=== PATIENT | male | born 1960 | race Caucasian/White ===

== ENCOUNTER 2018-03-22 11:02 | Outpatient (CLI) | payer OTHER ==
[~2018-03-22] VITALS: Ht 182.9 cm; Wt 97.3 kg
--- NOTE | ~2018-03-22 | HEMODYNAMI ---
PATIENT:BETH CORTEZ MEDICAL RECORD: [id number] : 56 LOCATION:[facility] ADMISSION DATE: 03/22/18 Generatedon:03/22/201815:07 Patient name: BETH CORTEZ Patient #: [id number] SSN: : 1960 Date of study: 03/22/2018 Page: Of Hemodynamic Procedure Report Patient Data Patient Demographics Procedure consent was obtained First Name: BETH Gender: Male Last Name: DIEGO : 1960 Middle Initial: L Age: 57 year(s) Patient #: [id number] Race: Unknown Additional ID: [id number] Contact details Address: [address] [place] [address] [address]IVE State: [place] City: [place] Zip code: [address] Past Medical History Allergies Allergen Reaction Date Comments Reported Other allergy 03/22/2018 PCN Admission Admission Data Admission Date: 03/22/2018 Admission Time: 11:02 Height (in.): 72 BSA: 2.19 (m2) Height (cm.): 182.88 BMI: 29.02 (kg/m2) Weight (lbs.): 214 Weight (kg.): 97.07 Procedure Procedure Types Cath Procedure Diagnostic Procedure C LH w/Coronaries w/Grafts Sedation Charges Moderate Sedation up to 45 minutes PCI Procedure Coronary Stent Coronary Stent Initial Procedure Description Procedure Date Procedure Date: 03/22/2018 Procedure Start Time: 14:12 Procedure End Time: 15:04 Procedure Staff Name Function Hugh Pinto MD Performing Physician Michelle Gandara RN Nurse Radha Cnaela RT Scrub Evan Richter RT Monitor David Medina RT Monitor Procedure Data Cath Procedure Fluoroscopy Diagnostic fluoroscopy Total fluoroscopy Time: time: 22.7 min 22.7 min Diagnostic fluoroscopy Total fluoroscopy dose: dose: 2185 mGy 2185 mGy Contrast Material Contrast Material Type Amount (ml) Isovue 370 186 Entry Location Entry Primary Successful Side Size Upsize Upsize Entry Closure Succes sful Closure Location (Fr) 1 (Fr) 2 (Fr) Remarks Device Remarks Femoral Right 5 Fr 6 Fr Exoseal artery Short Estimated blood loss: 10 ml Diagnostic catheters Device Type Used For End Catheter Placement MULTIPACK JL 4.0 5Fr Procedure catheter MULTIPACK 3DRC 5Fr Procedure catheter MULTIPACK Pigtail 5 Fr Procedure catheter Procedure Complications No complications Procedure Medications Medication Administration Route Dosage Oxygen NC 2 l/min Lidocaine 2% added to field 20 Heparin Flush Bag added to field 2 bags (1000units/500ml NS) 0.9% NaCl I.V. 100 ml/hr Versed I.V. 2 mg Fentanyl I.V. 50 mcg Versed I.V. 1 mg Fentanyl I.V. 50 mcg Versed I.V. 1 mg Heparin Bolus I.V. 4000 units Integrilin (Bolus I.V. 9 ml 2mg/ml) Brilinta P.O. 180 mg Hemodynamics Rest BSA: 2.19 (m2) O2 Consumption: Estimated: 252.23 (ml/min) O2 Consumption indexed : Estimated:115.17 (ml/min/m) Heart Rate: 63 (bpm) Pressure Samples Time Site Value (mmHg) Purpose Heart Use Rate(bpm) 14:14 AO 129/82(102) Snapshot 66 14:21 LV 124/22,26 Snapshot 65 14:22 AO 126/78(99) Pullback 67 14:22 LV 112/20,26 Pullback 67 14:22 AO 121/77(97) Snapshot 69 Gradients Valve Time Site 1 Site 2 Mean SEP/DFP Peak To Heart Use (mmHg) (sec/min) Peak Rate (mmHg) (bpm) Aortic 14:22 LV AO 0 67 112/20,26 126/78(99) Calculations Valve P-P Mean Valve Index Valve Source Name Gradient Area Flow (cm2) Aortic 0 0 Snapshots Pre Cath Intra NCS Post Cath Vital Signs Time Heart Resp SPO2 etCO2 NIBP (mmHg) Rhythm Pain Sedation Rate (ipm) (%) (mmHg) Status Level (bpm) 13:42:03 60 17 100 31.4 149/88(134) NSR 0 (11) 10(A) , No pain 13:46:19 66 15 97 29.9 161/90(138) NSR 0 (11) 10(A) , No pain 13:50:33 61 12 98 26.2 140/84(120) NSR 0 (11) 10(A) , No pain 13:55:22 63 16 97 39.6 140/82(101) NSR 0 (11) 10(A) , No pain 13:59:38 67 12 95 27.7 140/83(118) NSR 0 (11) 10(A) , No pain 14:03:42 69 13 94 32.9 136/92(113) NSR 0 (11) 10(A) , No pain 14:07:52 61 15 94 28.4 131/87(97) NSR 0 (11) 10(A) , No pain 14:12:08 64 12 93 37.4 125/80(106) NSR 0 (11) 9(A) , No pain 14:16:22 66 13 93 40.4 122/80(110) NSR 0 (11) 9(A) , No pain 14:21:47 68 12 95 0 127/68(103) NSR 0 (11) 9(A) , No pain 14:26:01 67 15 92 0 114/72(96) NSR 0 (11) 9(A) , No pain 14:30:15 70 14 94 0 113/71(87) NSR 0 (11) 10(A) , No pain 14:34:27 68 16 93 0 119/68(87) NSR 0 (11) 10(A) , No pain 14:38:41 67 13 93 0 128/74(109) NSR 0 (11) 10(A) , No pain 14:43:40 67 12 93 18.7 147/87(116) NSR 0 (11) 10(A) , No pain 14:47:56 69 12 94 33.7 155/92(133) NSR 0 (11) 10(A) , No pain 14:52:18 67 13 93 34.4 143/78(111) NSR 0 (11) 10(A) , No pain 14:56:36 71 14 92 38.9 131/72(106) NSR 0 (11) 10(A) , No pain 15:00:50 68 13 93 35.2 125/78(99) NSR 0 (11) 10(A) , No pain 15:05:04 64 14 94 36.7 128/79(102) NSR 0 (11) 10(A) , No pain Medications Time Medication Route Dose Verified Delivered Reason Notes Effectiveness by by 13:42:53 Oxygen NC 2 Hugh Martinez used for l/min St Baldo Gandara RN procedure MD 13:43:00 Lidocaine 2% added 20ml Hugh Reese for local to vial [facility] anesthetic field MD SINGH 13:43:07 Heparin Flush added 2 Hugh Reese used for Bag to bags [facility] John procedure (1000units/500ml field MD SINGH NS) 13:43:16 0.9% NaCl I.V. 100 Hugh Martinez Per physician ml/hr St Baldo Gandara RN, MD 14:04:46 Versed I.V. 2 mg Hugh Martinez for sedation St Baldo Gandara RN, MD 14:04:52 Fentanyl I.V. 50 Hugh Martinez for sedation mcg St Baldo Gandara RN, MD 14:09:16 Versed I.V. 1 mg Hugh Martinez for sedation St Baldo Gandara RN, MD 14:09:20 Fentanyl I.V. 50 Hugh Martinez for sedation mcg St Baldo Gandara RN, MD 14:20:37 Versed I.V. 1 mg Hugh Martinez for sedation St Baldo Gandara RN, MD 14:26:36 Heparin Bolus I.V. 4000 Hugh Martinez for verifi ed units St Baldo Gandara RN anticoagulation with dr MD reynolds 14:30:02 Integrilin I.V. 9 ml Hugh Maritnez for Wasted 1 (Bolus 2mg/ml) St Baldo Gandara RN antiplatelet ml of MD therapy vial 15:03:09 Brilinta P.O. [address] Hugh [address] for mg [facility] Baldo Gandara RN antiplatelet MD therapy Procedure Log Time Note 13:38:39 Patient Height : 72 inches 13:39:13 Patient Weight : 214 lbs 13:39:37 Diagnostic Cath status Elective 13:39:47 Michelle Gandara RN sent for patient. Start room use. 13:39:49 Time tracking: Regular hours (M-F 7:00 - 5:00) 13:39:55 Plan of Care:Hemodynamics will remain stable., Cardiac rhythm will remain stable., Comfort level will be maintained., Respiratory function will remain adequate., Patient/ family verbilizes understanding of procedure., Procedure tolerated without complication., Recovers from procedure without complications.. 13:40:36 Patient received from Pre/Post Procedure Room to CCL 2 Alert and oriented. Tansferred to table in Supine position. 13:40:37 Warm blankets applied, and jil hugger turned on for patient comfort. 13:40:38 Correct patient and procedure confirmed by team. 13:40:40 Signed procedure consent form obtained from patient. 13:40:46 ECG and BP/O2 sat monitors applied to patient. 13:40:50 Vital chart was started 13:41:04 Baseline sample Acquired. 13:41:53 Rhythm: sinus rhythm 13:41:56 Full Disclosure recording started 13:42:11 H&P Date Dictated: 03/08/2018 Within 30 days and on chart., H&P Addendum completed by physician on day of procedure. (MUST COMPLETE FOR ALL OUTPATIENTS). 13:42:13 Family in waiting room. 13:42:15 Patient NPO since Midnight. 13:42:26 Patient allergic to Other allergyPCN 13:42:35 Was the patient premedicated? Yes 13:42:36 Is the patient allergic to Iodine/contrast media? No. 13:42:39 Patient diabetic? No. 13:42:44 Snore? Yes 13:42:46 Sleep apnea? No 13:42:53 Oxygen 2 l/min NC was administered by Michelle Gandara RN; used for procedure; 13:42:55 Patient pain scale 0/10 ?. 13:43:00 Lidocaine 2% 20ml vial added to field was administered by Hugh Pinto MD; for local anesthetic; 13:43:05 IV patent on arrival in left hand with 0.9% NaCl at KVO. 13:43:07 Heparin Flush Bag (1000units/500ml NS) 2 bags added to field was administered by Hugh Pinto MD; used for procedure; 13:43:16 0.9% NaCl 100 ml/hr I.V. was administered by Michelle Gandara RN; Per physician; 13:43:16 Lab results completed and on chart. 13:43:21 Right groin area was prepped with chlora-prep and draped in sterile fashion 13:43:22 Alarms reviewed by R. N. 13:43:22 Sharps counted by scrub and verified by R.N. 13:43:23 Physician paged 13:50:40 Deviated septum? No 13:50:41 Opens mouth fully? Yes 13:50:42 Sticks out tongue? Yes 13:50:51 Airway obstruction? No ? 13:51:03 Dentures? No ? 13:51:32 Pre procedure: right dorsailis pedis pulse 2+ Normal; easily identifiable; not easily obliterated 14:02:22 Physician arrived 14:02:22 --------ALL STOP TIME OUT------ 14:02:23 Final Timeout: patient, procedure, and site verified with staff and physician. All members of the team are in agreement. 14:02:49 Right groin site verified by team. 14:02:57 Physical assessment completed. ASA score P 2 - A patient with mild systemic disease as per Hugh Pinto MD. 14:03:02 Sedation plan: IV Moderate Sedation Medication:Versed, Fentanyl 14:04:46 Versed 2 mg I.V. was administered by Michelle Gandara RN; for sedation; 14:04:52 Fentanyl 50 mcg I.V. was administered by Michelle Gandara RN; for sedation; 14:05:31 Use device set Femoral Dx 14:05:33 ACIST Syringe (31801) opened to sterile field. 14:05:34 Bag Decanter (2002S) opened to sterile field. 14:05:34 Medline Cath Pack ([id number]) opened to sterile field. 14:05:35 DIAGNOSTIC WIRE .035 260cm J wire ([id number]) opened to sterile field. 14:05:37 ACIST Hand Control (65008) opened to sterile field. 14:05:38 ACIST Manifold (78241) opened to sterile field. 14:05:39 DIAGNOSTIC Multipack 5Fr catheter set (LC0628) opened to sterile field. 14:05:40 Tegaderm 4 x 4 (1626W) opened to sterile field. 14:05:46 SHEATH Prelude 5Fr 0.035 (THY-6S-69-035) opened to sterile field. 14:07:14 Zero performed for pressure channel P1 14:09:16 Versed 1 mg I.V. was administered by Michelle Gandara RN; for sedation; 14:09:20 Fentanyl 50 mcg I.V. was administered by Michelle Gandara RN; for sedation; 14:12:06 Procedure started. 14:12:12 Local anesthetic to right femoral artery with Lidocaine 2% by Hugh Pinto MD.INITIAL ACCESS ONLY 14:13:15 A 5 Fr sheath was inserted into the Right Femoral artery 14:13:58 A MULTIPACK JL 4.0 5Fr catheter was advanced over the wire and used for Procedure. 14:14:44 LCA angiography performed. 14:15:29 Catheter removed. 14:15:34 A MULTIPACK 3DRC 5Fr catheter was advanced over the wire and used for Procedure. 14:15:55 RCA angiography performed. 14:19:14 ROCA to LAD angiography performed. 14:20:11 ROCA to Diag angiography performed. 14:20:14 ROCA to OM angiography performed. 14:20:23 Catheter removed. 14:20:37 Versed 1 mg I.V. was administered by Michelle Gandara RN; for sedation; 14:20:45 skip graft to all three 14:21:00 A MULTIPACK Pigtail 5 Fr catheter was advanced over the wire and used for Procedure. 14:21:58 LV hemodynamics recorded. 14:22:01 LV gram done using ALVARADO 14:22:11 EF : 55 % 14:22:40 Aortic Root visualized 14:24:35 Catheter removed. 14:24:36 Proceeding to intervention. 14:25:13 GUIDE 6FR HS I catheter (LA6HSI) opened to sterile field. 14:25:14 INFLATOR Merit BasixCompak (TM3892) opened to sterile field. 14:25:22 WHISPER 300cm guide wire ([id number]) opened to sterile field. 14:25:41 SHEATH 6Fr Prelude ([id number]) opened to sterile field. 14:26:36 Heparin Bolus 4000 units I.V. was administered by Michelle Gandara RN; for anticoagulation; verified with dr reynolds 14:27:02 Sheath upsized to a 6 Fr Short. 14:27:27 6 Fr HS 1 guide catheter was inserted over the wire 14:28:51 WHISPER wire advanced. 14:30:02 Integrilin (Bolus 2mg/ml) 9 ml I.V. was administered by Michelle Gandara RN; for antiplatelet therapy; Wasted 1 ml of vial 14:30:28 Wire advanced across lesion. 14:31:47 The INTEGRITY RX 3.0 x 22 stent ([id number]) was advanced then removed because of failure to cross lesion 14:34:43 Inflate balloon Inflation number: 1 A EUPHORA 3.0 x 15 Balloon ([id number]) was prepped and advanced across the Mid RCA, then inflated to 12 ROLO for 0:15 (min:sec). 14:37:15 The EUPHORA 3.0 x 15 Balloon ([id number]) was advanced and then removed because of failure to cross lesion 14:37:42 NOT ABLE TO READVANCE BALLOON WITH FLARE 14:39:37 Wire removed. 14:39:44 CHOICE PT Extra Support J 300cm guide wire ([id number]) opened to sterile field. 14:40:09 CHOICE PT wire advanced. 14:41:03 Inflate balloon Inflation number: 2 A EMERGE OTW 2.0 x 15 balloon ([id number]) was prepped and advanced across the Mid RCA, then inflated to 14 ROLO for 0:42 (min:sec). 14:41:20 Inflation number: 3 The EMERGE OTW 2.0 x 15 balloon ([id number]) was reinflated across the Mid RCA, to 14 ROLO for 0:20 (min:sec). 14:42:11 Inflation number: 4 The EMERGE OTW 2.0 x 15 balloon ([id number]) was reinflated across the Mid RCA, to 14 ROLO for 0:10 (min:sec). 14:45:38 Place stent Inflation Number: 5 A INTEGRITY RX 3.0 x 22 stent ([id number]) was prepped and advanced across the Mid RCA. The stent was deployed at 14 ROLO for 0:10 (min:sec). 14:46:02 Evan Richter RT(R)(CV) was relieved by David Medina RT(R) as monitoring person 14:47:21 Stent catheter was removed intact over wire. 14:50:23 Place stent Inflation Number: 1 A INTEGRITY OTW 3.0 X 30 stent ([id number]) was prepped and advanced across the Prox RCA. The stent was deployed at 14 ROLO for 0:30 (min:sec). 14:51:02 Stent catheter was removed intact over wire. 14:56:55 Place stent Inflation Number: 2 A INTEGRITY OTW 3.0 X 12 stent ([id number]) was prepped and advanced across the Prox RCA. The stent was deployed at 12 ROLO for 0:30 (min:sec). 14:58:41 Stent catheter was removed intact over wire. 14:58:42 Wire removed. 14:58:43 Guide catheter removed. 14:58:49 EXOSEAL 6Fr (EX600) opened to sterile field. 15:00:37 Sheath removed intact; hemostasis achieved with Exoseal to the Right Femoral artery. 15:00:39 Procedure ended.(Physican Out) 15:01:57 Fluoroscopy time 22.70 minutes. 15:02:03 Fluoroscopy dose: 2185 mGy 15:02:03 Flurop Dose total: 2185 15:02:06 Contrast amount:Isovue 370 186ml. 15:02:07 Sharps counted by scrub and verified by R.N. 15:02:09 Insertion/operative site no bleeding no hematoma. 15:02:12 Post-op/insertion site Right Femoral artery dressed using a 4 x 4 and Tegaderm. 15:02:16 Post right femoral artery:stable, soft, clean and dry 15:02:17 Post Procedure Pulses reassessed and unchanged 15:02:19 Post-procedure physical assessment completed. ASA score P 2 - A patient with mild systemic disease as per Hugh Pinto MD. 15:02:22 Post procedure rhythm: unchanged. 15:02:24 Estimated blood loss: 10 ml 15:02:26 Post procedure instruction explained to patient.Patient verbalizes understanding. 15:02:26 Patient needs reinforcement of post procedure teaching. 15:02:57 Procedure type changed to Cath procedure, Diagnostic procedure, LHC, LHC w/Coronaries w/Grafts, Sedation Charges, Moderate Sedation up to 45 minutes, PCI procedure, Coronary Stent, Coronary Stent Initial 15:03:09 Brilinta 180 mg P.O. was administered by Michelle Gandara RN; for antiplatelet therapy; 15:04:23 Procedure and supply charges have been captured, reviewed, submitted and are correct. 15:04:25 Procedure Complication : No complications 15:04:27 Vital chart was stopped 15:04:27 See physician's report for complete and final results. 15:04:28 Report given to Pre/Post Procedure Room. 15:04:32 Patient transfered to Pre/Post Procedure Room with Stretcher. 15:04:34 Procedure ended. 15:04:34 Full Disclosure recording stopped 15:04:39 End room use (Document Last) Intervention Summary Intervention Notes Time ActionType Lesion and Equipment Action# Pressure Duration Attributes Used 14:31:47 Discard INTEGRITY RX Stent 3.0 x 22 stent ([id number]) 14:34:43 Inflate Mid RCA EUPHORA 3.0 1 12 00:15 balloon x 15 Balloon ([id number]) 14:37:15 Discard EUPHORA 3.0 Balloon x 15 Balloon ([id number]) 14:41:03 Inflate Mid RCA EMERGE OTW 2 14 00:42 balloon 2.0 x 15 balloon ([id number]) 14:41:20 Reinflate Mid RCA EMERGE OTW 3 14 00:20 balloon 2.0 x 15 balloon ([id number]) 14:42:11 Reinflate Mid RCA EMERGE OTW 4 14 00:10 balloon 2.0 x 15 balloon ([id number]) 14:45:38 Place stent Mid RCA INTEGRITY RX 5 14 00:10 3.0 x 22 stent ([id number]) 14:50:23 Place stent Prox RCA INTEGRITY 1 14 00:30 OTW 3.0 X 30 stent ([id number]) 14:56:55 Place stent Prox RCA INTEGRITY 2 12 00:30 OTW 3.0 X 12 stent ([id number]) Device Usage Item Name Manufacture Quantity Catalog Number Hospital Part Current M inimal Lot# / Charge Number Stock Stock Serial# Code ACIST Syringe Acist 1 97864 617588 768106 383441 2 0 (89822) Medical Systems Inc Bag Decanter Microtek 1 2001S 421416 59425 547662 5 () Medical Inc. Medline Cath Cardinal 1 [id number] 211373 78363 190508 5 Pack Health ([id number]) DIAGNOSTIC WIRE St Issac 1 011817 669271 347635 274887 3 0 .035 260cm J wire (169376) ACIST Hand Acist 1 59984 609037 224797 362839 5 Control (32011) Medical Systems Inc ACIST Manifold Acist 1 92002 700878 927822 488764 5 (72606) Medical Systems Inc DIAGNOSTIC Cardinal 1 KM0679 063437 47655 178076 3 0 Multipack 5Fr Health catheter set (CU6896) Tegaderm 4 x 4 3M 1 1626W 598179 304123 119376 5 (1626W) SHEATH Prelude Merit 1 ALM-3Q-27-035 898331 867780 910683 5 5Fr 0.035 Medical (CNG-0A-30-035) MULTIPACK JL Cardinal 1 858454 5 4.0 5Fr Health catheter MULTIPACK 3DRC Cardinal 1 727674 5 5Fr catheter Health MULTIPACK Cardinal 1 349690 5 Pigtail 5 Fr Health catheter GUIDE 6FR HS I Medtronic 1 LA6HSI 296120 97681 611041 1 catheter (LA6HSI) INFLATOR Merit Merit 1 TI9240 761420 391302 528307 1 5 Voxel (XA5834) WHISPER 300cm [place] 1 [id number] 192934 988999 717519 5 guide wire Vascular ([id number]) SHEATH 6Fr Merit 1 [id number] 353992 708903 443201 5 Prelude Medical ([id number]) INTEGRITY RX Medtronic 1 [id number] 475680 262160 117195 5 [id number] 3.0 x 22 stent ([id number]) EUPHORA 3.0 x Medtronic 1 [id number] 919864 265817 418738 5 15 Balloon (CPT7860C) CHOICE PT Extra [place] 1 [id number] 455764 195190 065444 5 [id number] Support J 300cm Scientific guide wire ([id number]) EMERGE OTW 2.0 [place] 1 [id number] 957770 004580 509632 5 [id number] x 15 balloon Scientific ([id number]) INTEGRITY OTW Medtronic 1 [id number] 119891 497706 2 [id number] 3.0 X 30 stent ([id number]) INTEGRITY OTW Medtronic 1 [id number] 959105 102343 8 [id number] 3.0 X 12 stent ([id number]) EXOSEAL 6Fr Cardinal 1 EX600 159699 961031 429889 1 0 (EX600) Health Signature Audit [place] Stage Time Signature Unsigned Intra-Procedure 03/22/2018 David Medina 3:07:17 PM RT(R) Signatures Monitor : Evan Richter RT Signature : Date : Time : Monitor : David Medina RT Signature : Date : Time : [place] [address] [place] [address]
--- NOTE | ~2018-03-22 | OP ---
PATIENT NAME: BETH CORTEZ MEDICAL RECORD: [id number] :56 LOCATION:D.CAT ADMISSION DATE: SURGEON: TISH CORONADO MD DATE OF OPERATION: 03/22/2018 PROCEDURE: Left heart catheterization, selective coronary angiography plus ROCA and PTCA stent to the right coronary artery, right femoral artery approach. CATHETERS: A 5-Sudanese sheath, 5/4 left and right Charlene, 5/4 pig. 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 FINDINGS: Left ventriculography in 30-degree ALVARADO view: Normal wall motion, normal systolic function. Aortic root injection, this shows only a ROCA filling. No saphenous grafts. [place] ANATOMY: LEFT MAIN: Left main fills only the small AV groove. CIRCUMFLEX: Smallest vessel. RIGHT CORONARY ARTERY: Severe diffuse disease proximally, tightest 90% in its mid portion and proximal portion. ROCA: This is a skip graft to ROCA and a large OM and is widely patent throughout its course without evidence of post-anastomotic stenosis. IMPRESSION: Ischemic coronary artery, obviously the right coronary artery. PLAN: Intervention momentarily. DESCRIPTION OF PROCEDURE: A 5-Sudanese sheath was exchanged for a 6-Sudanese sheath. A hockey stick guide catheter provided good guide catheter support followed by a 300 cm Whisper wire, which was placed down the tightly occluded right down this portion of vessel. Next, we used a 2.0 balloon as an exchange wire taken distally and changed out the Whisper wire to a PT extra support wire. Next, pre-deployment inflations were used using the 2.0 balloon. Next, stents deployed were a 3.0 x 18 mm, 3.0 x 30 mm, and 3.0 x 12 mm all Integrity nondrug eluting stent to 14 atmospheres for 45 seconds. Final angiography shows excellent resolution of severe diffuse disease of right. No significant residual. ANGELA flow was 3 throughout the procedure. Brilinta was loaded in the lab. Sheath was closed with ExoSeal device. TRANSINT:[id number] Voice Confirmation ID: [id number] DOCUMENT ID: [id number] TISH CORONADO MD at 0849 CC: [id number] DICTATION DATE: 03/22/18 1507 ELEVATOR CONSTRUCTOR ELECTRIC: 03/22/18 1546 DEP CLI 03/22/18 [facility] [address] [place] [place] [address]
[2018-03-22] MEDS ORDERED: LISINOPRIL10 MG PO (11:42)
[2018-03-22] MEDS ORDERED: TENORMIN50 MG PO (11:43)
[2018-03-22] MEDS ORDERED: ISOSORBIDE MONO30 M1 PO (11:43)
[2018-03-22] MEDS ORDERED: BAYER CHEWABLE81 MG PO (11:44)
[2018-03-22] MEDS ORDERED: LOVASTATIN40 MG PO (11:44)
[2018-03-22 11:52] VITALS: BP 154/88; Ht 182.9 cm; Wt 97.3 kg
[2018-03-22 12:05] LABS: BASOPHILS 0.4 % (0-2); EOSINOPHILS 1.1 % (0-7); HEMATOCRIT 40.5 % (42.0-54.0); HEMOGLOBIN 13.4 g/dL (13.5-17.5); IMMATURE GRANULOCYTES 0.3 % (0-5); LYMPHOCYTES 20.6 % (15-50); MCH 32.5 pg (26.0-34.0); MCHC 33.1 g/dL (31.0-37.0); MCV 98.3 fL (80.0-100.0); MEAN PLATELET VOLUME 11.3 fL (7.4-10.4); MONOCYTES 13.5 % (2-11); NEUTROPHILS 64.1 % (40-80); PLATELET COUNT 208 10x3/uL (130-400); RBC 4.12 10x6/uL (4.20-6.10); RDW 13.1 % (11.5-14.5); WBC 7.3 10x3/uL (4.8-10.8)
[2018-03-22 12:19] LABS: CALC OSMOLALITY 271 mosm/kg (275-300); CALCIUM 8.9 mg/dL (8.5-10.1); CARBON DIOXIDE 27.3 mmol/L (21.0-32.0); CHLORIDE - SERUM 102 mmol/L (98-107); CREATININE - SERUM 0.7 mg/dL (0.6-1.3); GLUCOSE 110 mg/dL (74-106); POTASSIUM - SERUM 3.8 mmol/L (3.5-5.1); SODIUM 135 mmol/L (136-145); UREA NITROGEN 14 mg/dL (7-18); eGFR NON AFRICAN AMERICAN > 90 mL/min (90-120)
[2018-03-22] MEDS ORDERED: BRILINTA90 MG PO (15:23)
== END 2018-03-22 19:00 ==
LOC: D.CATH 11:02
PROVIDERS: Internal Medicine Interventional Cardiology
DX: I25.119 Atherosclerotic heart disease of native coronary artery with unspecified angina pectoris (principal); Z95.1 Presence of aortocoronary bypass graft; Z01.812 Encounter for preprocedural laboratory examination

== ENCOUNTER → 2018-05-25 11:18 | Outpatient (CLI) | payer OTHER ==
[2018-03-22 11:52] VITALS: BMI 29.1
[~2018-05-25 11:18] MED LIST: BAYER CHEWABLE81 MG PO; BRILINTA90 MG PO; ISOSORBIDE MONO30 M1 PO; LISINOPRIL10 MG PO; LOVASTATIN40 MG PO; TENORMIN50 MG PO
== END | disposition home or self-care (01) ==
LOC: D.CT 11:00
DX: R06.00 Dyspnea, unspecified (principal)